=== PATIENT | female | born 1960 | race Caucasian/White ===

== ENCOUNTER 2018-04-12 08:07 | Emergency (ER) | payer SELFPAY ==
[2018-04-12 08:34] VITALS: BP 153/85
[2018-04-12] MEDS ORDERED: Ibuprofen TAB* 600 MG PO ONE (08:52)
--- NOTE | 2018-04-12 09:13 | UC ---
Hand/Wrist HPI - HPI Summary HPI Summary: 57 year old LHD female with left hand pain after a bread rack fell on her left hand. patient here with swelling and pain to distal tip of her left ring finger. No other injuries. No numbness or tingling - History Of Current Complaint Chief Complaint: UCUpperExtremity Stated Complaint: L RING FINGER PAIN Time Seen by Provider: 04/12/18 08:15 Hx Last Menstrual Period: NOT SINCE 35-1 OVARY Onset/Duration: Sudden Onset Severity Initially: Mild Pain Intensity: 8 Character Of Pain: Sharp Aggravating Factor(s): Movement, Lifting, Flexion, Extension - Allergies/Home Medications Allergies/Adverse Reactions: Allergies Allergy/AdvReac Type Severity Reaction Status Date / Time latex Allergy Rash Verified 04/12/18 08:26 Sulfa (Sulfonamide Allergy Rash Verified 04/12/18 08:41 Antibiotics) PMH/Surg Hx/FS Hx/Imm Hx Previously Healthy: Yes - Surgical History Surgical History: Yes Surgery Procedure, Year, and Place: X 2. ARTHROSCOPY- RT KNEE - Social History Alcohol Use: Rare Substance Use Type: None Smoking Status (MU): Former Smoker Type: Cigarettes When Did the Patient Quit Smoking/Using Tobacco: 2013 Review of Systems Constitutional: Negative - left ring finger distal tip Skin: Negative Eyes: Negative ENT: Negative Respiratory: Negative Cardiovascular: Negative Gastrointestinal: Negative Genitourinary: Negative Motor: Negative Neurovascular: Negative Musculoskeletal: Edema Neurological: Negative Psychological: Negative All Other Systems Reviewed And Are Negative: Yes Physical Exam Triage Information Reviewed: Yes Appearance: Well-Appearing, No Pain Distress Vital Signs: Initial Vital Signs Temp 37.0 C 04/12/18 08:28 Pulse 72 04/12/18 08:28 Resp 16 04/12/18 08:28 BP 153/85 04/12/18 08:28 Pulse Ox 97 04/12/18 08:28 Respiratory Exam: Normal Cardiovascular Exam: Normal Musculoskeletal: Positive: Other: - Left ring finger with hematoma to distal tip Subungual hematoma with intact nail matrix and nail fold Neurological Exam: Normal Skin Exam: Normal Hand/Wrist Course/Dx - Course Course Of Treatment: NSAID given. Will apply finger splint for comfort - Differential Dx/Diagnosis Differential Diagnosis/HQI/PQRI: Abrasion, Contusion, Subungual Hematoma Provider Diagnoses: Subungual hematoma Discharge - Sign-Out/Discharge Documenting (check all that apply): Discharge/Admit/Transfer - Discharge Plan Condition: Good Disposition: HOME Prescriptions: Naproxen [Naproxen 500 mg tab] 500 mg PO BID PRN #20 tablet.dr KRUEGER Reason: Pain - Moderate Forms: *Work Release Referrals: Cat Thomas MD [Primary Care Provider] - Additional Instructions: Finger splint for comfort. Take pain medication as needed. - Billing Disposition and Condition Condition: GOOD Disposition: HOME
--- NOTE | 2018-04-12 09:37 | RAD ---
Indication: Crush injury to the LEFT fourth finger. Comparison: No relevant prior exams available on the [facility] [place]. Technique: AP and lateral views LEFT hand Report: Negative for fracture, malalignment, or significant soft tissue contour abnormality. IMPRESSION: Negative radiographic exam of the LEFT hand.
== END 2018-04-12 10:18 | disposition home or self-care (01) ==
LOC: UCEAST 08:07
DX: S60.042A Contusion of left ring finger without damage to nail, initial encounter (principal); W20.8XXA Other cause of strike by thrown, projected or falling object, initial encounter; Y93.9 Activity, unspecified; Y92.9 Unspecified place or not applicable; Z88.2 Allergy status to sulfonamides; Z91.040 Latex allergy status; Z87.891 Personal history of nicotine dependence
CPT/HCPCS: 99213; A9270-GY; G0463

== ENCOUNTER 2021-05-18 10:15 | Observation (INO) ==
[~2021-05-18 10:15] MED LIST: Buffered Lidocaine 1% SYRIN 1 ml INTRADERM ONE; Lactated Ringers 1000 ml BAG 1,000 ML IV SCH
[2021-06-03] MEDS ORDERED: fentaNYL 100 mcg/2 ml 50 MCG/ML VIAL IV PRN (15:41)
[2021-06-03] MEDS ORDERED: Naloxone 0.4 mg VIAL 0.4 mg/ml 1 ml VIAL IV PRN (15:41)
[2021-06-03] MEDS ORDERED: DiMENhydriNATE IV 50 mg/ml 1 ml VIAL IV PUSH PRN (15:41)
[2021-06-04] MEDS ORDERED: Buffered Lidocaine 1% SYRIN 1 ml INTRADERM ONE (06:00)
[2021-06-04] MEDS ORDERED: Lactated Ringers 1000 ml BAG 1,000 ML IV SCH (06:00)
[2021-06-04] MEDS ORDERED: ceFAZolin 2 GM in NS PREMIX 2 GM/100 ML BAG IVPB ONE (11:02)
[2021-06-04] MEDS ORDERED: Midazolam 5 mg/5 ml VIAL 1 mg/ml 5 ml VIAL (5 mg) ONE (12:00)
[2021-06-04] MEDS ORDERED: Dexmedetomidine 200 mcg/2 ml 2 ml VIAL (200 mcg) ONE (12:12)
[2021-06-04] MEDS ORDERED: Lidocaine 2% PF 5 ML VIAL ONE ×2 (12:12→13:34)
[2021-06-04] MEDS ORDERED: ROPIVACAINE 5 MG/ML 30 ML BTL (0.5%) ONE ×2 (12:13→14:04)
[2021-06-04] MEDS ORDERED: Acetaminophen IV 1 GM/100ML 100 ML IV ONE (13:32)
[2021-06-04] MEDS ORDERED: diPHENhydraMINE 25 mg TAB PO PRN (15:24)
[2021-06-04] MEDS ORDERED: diPHENhydraMINE IV 50 MG/ML 1 ml VIAL (BENADRYL) IV PRN (15:24)
[2021-06-04] MEDS ORDERED: Ondansetron ODT 4 mg TAB 4 MG TAB PO PRN (15:24)
[2021-06-04] MEDS ORDERED: Lactulose 30 ml UDC PO PRN (15:24)
[2021-06-04] MEDS ORDERED: Magnesium Hydroxide LIQ 30 ML UDC PO PRN (15:24)
[2021-06-04] MEDS: Ondansetron 4 mg VIAL 2 MG/ML 2 ml VIAL IV PRN (17:22)
[2021-06-04] MEDS: Morphine 2 MG/ML SYRINGE IV PRN ×2 (17:22→21:03)
[2021-06-04] MEDS: Lactated Ringers 1000 ml BAG 1,000 ML IV SCH (17:32)
[2021-06-04] MEDS: ceFAZolin 1 GM ADVAN 1 GM in NS 0.9% 50 ML 50 ML IVPB SCH (21:00)
[2021-06-04] MEDS: Magnesium Hydroxide LIQ 30 ML UDC PO SCH (21:01)
[2021-06-05] MEDS: Morphine 2 MG/ML SYRINGE IV PRN (01:55)
[2021-06-05] MEDS: Lactated Ringers 1000 ml BAG 1,000 ML IV SCH (03:58)
[2021-06-05 05:22] LABS: Hematocrit 41 % (35-47); Hemoglobin 13.4 g/dL (12.0-16.0); Mean Platelet Volume 11.1 fL (7.4-10.4); Platelet Count 120 10^3/uL (150-450)
[2021-06-05 05:34] LABS: Calcium 8.5 mg/dL (8.6-10.3); EGFR Non-African American 63.7 (>60); Potassium 4.1 mmol/L (3.5-5.0)
[2021-06-05] MEDS: ceFAZolin 1 GM ADVAN 1 GM in NS 0.9% 50 ML 50 ML IVPB SCH ×2 (05:35→13:06)
[2021-06-05] MEDS: Magnesium Hydroxide LIQ 30 ML UDC PO SCH (08:09)
[2021-06-05] MEDS ORDERED: Vitamin THERAPEUTIC TAB PO SCH (09:00)
[2021-06-05] MEDS ORDERED: Aspirin EC 81 mg TAB.EC (enteric coated) PO SCH (09:00)
[2021-06-05] MEDS ORDERED: Morphine ER 15 mg TAB ** extended release PO SCH (10:00)
[2021-06-05 11:24] VITALS: BP 103/55
[2021-06-05] MEDS: Ondansetron 4 mg VIAL 2 MG/ML 2 ml VIAL IV PRN (13:31)
== END 2021-06-05 16:54 | disposition home or self-care (01) ==
LOC: AA 06-04 10:19 → INTOOBSV 06-04 10:19 → SSU 06-04 15:24
PROVIDERS: ADMIT Orthopaedic Surgery Adult Reconstructive Orthopaedic Surgery; ATTEND Orthopaedic Surgery Adult Reconstructive Orthopaedic Surgery